=== PATIENT | male | born 1940 | race Caucasian/White ===

== ENCOUNTER 2022-11-27 16:27 | Emergency (ER) | payer MEDICARE, OTHER ==
[~2022-11-27] VITALS: Ht 182.9 cm; Wt 77.3 kg
[2022-11-27 16:40] VITALS: BP 142/67; PULSE 99; RESP 19; TEMP 98.8; O2SAT 96
[2022-11-27 18:35] LABS: BASOPHILS # (AUTO) 0.1 X10'3 (0-0.2); BASOPHILS % (AUTO) 0.7 % (0-1); EOSINOPHILS # (AUTO) 0.6 X10'3 (0-0.9); EOSINOPHILS % (AUTO) 6.6 % (0-6); HEMATOCRIT 42.8 % (42.0-52.0); HEMOGLOBIN 14.7 g/dl (14.0-17.9); LYMPHOCYTES # (AUTO) 1.5 X10'3 (1.1-4.8); MEAN CORPUSCULAR HEMOGLOBIN 31.9 PG (27.0-31.0); MEAN CORPUSCULAR HGB CONC 34.4 g/dL (33.0-36.5); MEAN CORPUSCULAR VOLUME 92.9 FL (78-98); MEAN PLATELET VOLUME 8.3 FL (7.4-10.4); MONOCYTES % (AUTO) 10.5 % (2-12); NEUTROPHILS % (AUTO) 66.2 % (42-75); PLATELET COUNT 134 X10'3 (140-440); RED BLOOD COUNT 4.61 X10'6 (4.70-6.10); RED CELL DISTRIBUTION WIDTH 13.5 % (11.5-14.5); WHITE BLOOD COUNT 9.1 X10'3 (4.5-11.0)
[2022-11-27 18:56] LABS: ALANINE AMINOTRANSFERASE 47 U/L (12-78); ALBUMIN 3.2 G/DL (3.4-5.0); ALBUMIN/GLOBULIN RATIO 0.7 (1.1-1.5); ALKALINE PHOSPHATASE 91 IU/L (46-116); ANION GAP 5 (8-16); ASPARTATE AMINO TRANSFERASE 40 U/L (10-37); BILIRUBIN,TOTAL 1.3 MG/DL (0.1-1.0); BLOOD UREA NITROGEN 47 MG/DL (7-18); BUN/CREATININE RATIO 44.8 (10.0-20.0); CALCIUM 9.5 MG/DL (8.5-10.1); CHLORIDE 100 MMOL/L (99-107); CREATININE 1.05 MG/DL (0.60-1.10); POTASSIUM 3.3 MMOL/L (3.5-5.1); SODIUM 135 MMOL/L (135-145); TOTAL CARBON DIOXIDE 29.8 MMOL/L (24-32); TOTAL PROTEIN 7.8 G/DL (6.4-8.2); eCRCL 59 ML/MIN; eGFR 68 ML/MIN
[2022-11-27 19:00] LABS: GLUCOSE 121 MG/DL (70-104)
== END 2022-11-27 20:37 | disposition home or self-care (01) ==
LOC: ER 16:28
DX: R53.1 Weakness (principal); L03.119 Cellulitis of unspecified part of limb
CPT/HCPCS: 36415; 71045; 80053; 83605; 84145; 84484; 85025; 87040; 99284; 99285